=== PATIENT | female | born 1940 | race Caucasian/White ===

== ENCOUNTER → 2019-06-26 09:04 | Outpatient (CLI) | payer MEDICARE, OTHER, SELFPAY ==
--- NOTE | 2019-06-26 | DI.ECHO.S_ITS ---
[facility]---------[facility] +---------+ : : [address] : [address] [place] : : : : [id number] : : : : Phone: [phone]+ Echocardiogram Report + + :Name: TRACE CHAVEZ Study Date: 06/26/2019 Height: 65 in : :[facility] Weight: 118 lb : : Gender: Female BSA: 1.6 m2 : :: 1940 Age: 78 yrs BP: 152/84 mmHg: :Reason For Study: Aortic valve replacement - bioprosthetic : : Performed By: Dominic Auguste : :Referring: APRIL SILVA : + + Interpretation Summary 1) Normal left ventricular size, thickness, wall motion, and systolic function (EF 60-65%). 2) Normal right ventricular size and function. 3) There is a bioprosthetic aortic valve that is well-seated and opens well with mean gradient of 6mmHg. 4) No prior Echo available for comparison. Procedure: A two-dimensional transthoracic echocardiogram with color flow and Doppler was performed. The study quality was technically adequate. There is no prior echocardiogram noted for this patient. The patient was in normal sinus rhythm during the exam. Left Ventricle: The left ventricle is normal in size. There is mild concentric left ventricular hypertrophy. Left ventricular systolic function is normal. The ejection fraction is estimated to be 55-60%. Left ventricular wall motion is normal. Right Ventricle: The right ventricle is normal in size and function. Atria: The left atrial size is normal. Right atrial size is normal. The interatrial septum is intact with no evidence for an atrial septal defect. Mitral Valve: The mitral valve leaflets appear mildly thickened, but open well. There is no mitral regurgitation noted. Aortic Valve: There is a bioprosthetic aortic valve. The prosthetic aortic valve is well-seated. The aortic valve mean gradient is 6 mmHg. There is trace aortic regurgitation. Tricuspid Valve: The tricuspid valve is normal in structure and function. There is mild tricuspid regurgitation. The right ventricular systolic pressure is estimated to be at least 34 mmHg based on an estimated right atrial pressure of 8 mm Hg. Pulmonic Valve: The pulmonic valve is not well visualized. There is trace pulmonic regurgitation. Great Vessels: The aortic root is normal size. The dimensions of the ascending aorta are normal. The pulmonary artery is normal size. The IVC is of normal diameter and collapses less than 50% with a sniff. This suggests a right atrial pressure of 8 mm Hg. Pericardium/ Pleura There is no pericardial effusion. There is no pleural effusion. MMode/2D Measurements & Calculations LVIDd: 3.5 cm LVOT diam: 2.0 cm LVIDs: 2.4 cm Ao root diam: 2.3 cm FS: 30.2 % EPSS: 0.51 cm IVSd: 1.2 cm LVPWd: 1.2 cm LV stacy. diameter/BSA (cm/m^2): 2.2 LV sys. diameter/BSA (cm/m^2): 1.5 LA A4 area: 13.9 cm2 RA long axis: 4.5 cm LA length (vol): 4.1 cm RA area: 11.5 cm2 RA vol: 24.9 ml RA : 15.8 ml/m2 Doppler Measurements & Calculations Ao V2 max: 168.7 cm/sec LVOT Max Chetan: 75.0 cm/sec Ao V2 mean: 118.1 cm/sec LV V1 max P.2 mmHg Ao max P.4 mmHg LV V1 VTI: 16.5 cm Ao mean P.4 mmHg YOANA(I,D): 1.5 cm2 Ao V2 VTI: 36.8 cm YOANA(V,D): 1.5 cm2 sev ratio: 0.45 YOANA indexed to BSA (cm^2/m^2): 0.93 MV E max chetan: 52.5 cm/sec TR max chetan: 227.3 cm/sec MV A max chetan: 91.3 cm/sec TR max P.9 mmHg MV E/A: 0.58 PA V2 max: 68.0 cm/sec Med Peak E' Chetan: 6.3 cm/sec PA V2 mean: 47.6 cm/sec E/E' med: 8.3 PA mean P.0 mmHg Lat Peak E' Chetan: 5.9 cm/sec PA Accel Time: 0.12 sec E/E' lat: 9.0 E/e' average: 8.7 MV dec time: 0.30 sec SV(LVOT): 54.3 ml Reading Physician:10:48 AM
== END ==
PROVIDERS: PCP Nurse Practitioner; Visit Provider Internal Medicine Cardiovascular Disease
DX: I07.1 Rheumatic tricuspid insufficiency (principal); Z95.3 Presence of xenogenic heart valve
CPT/HCPCS: 93306

== ENCOUNTER 2019-08-07 11:30 | Outpatient (RCR) | payer MEDICARE, OTHER, SELFPAY | END 2019-08-30 08:52 | LOC: CAR 11:30 | PROVIDERS: PCP Nurse Practitioner; Visit Provider Internal Medicine Cardiovascular Disease | DX: Z95.2 Presence of prosthetic heart valve (principal) | CPT/HCPCS: 93798 ==

== ENCOUNTER → 2020-05-24 10:37 | Outpatient (CLI) | payer MEDICARE, OTHER, SELFPAY ==
[2020-05-24 11:59] LABS: Cholesterol 189 mg/dL (140-199); HDL Cholesterol 66 mg/dL (40-60); LDL Cholesterol Calculated 88 mg/dL (<100); Triglycerides 174 mg/dL (35-150)
== END ==
PROVIDERS: PCP Nurse Practitioner; Referring Provider Internal Medicine Cardiovascular Disease; Visit Provider Internal Medicine Cardiovascular Disease
DX: E78.5 Hyperlipidemia, unspecified (principal)
CPT/HCPCS: 36415; 80061

== ENCOUNTER → 2020-05-27 13:30 | Outpatient (CLI) | payer MEDICARE, OTHER, SELFPAY ==
--- NOTE | 2020-05-27 | DI.ECHO.S_ITS ---
[facility]---------[facility] +---------+ : : [address] : : : [address] [place] : : : : [id number] : : : : Phone: [phone]+ Echocardiogram Report + + :Name: TRACE CHAVEZ Study Date: 05/27/2020 Height: 64 in : :[facility] Weight: 130 lb : : Gender: Female BSA: 1.6 m2 : :: 1940 Age: 79 yrs BP: 182/100 mmHg: :Reason For Study: XENOGENIC HEART VALVE : :Ordering Physician: ABI, : :APRIL Performed By: Pat Perea : :Referring: APRIL SILVA : + + Interpretation Summary 1) Normal left ventricular size, thickness, wall motion, and systolic function (EF 65-70%). 2) Normal right ventricular size and function. 3) There is a bioprosthetic aortic valve that is well-seated and opens well with mean gradient of 2mmHg. No regurgitation present. 4) The ascending aorta is moderately enlarged at 4.8cm. This is stable from Echo 04/13/2019. 5) Compared to the echo done 06/26/2019, ascending aorta is better visualized and is enlarged on this study. Procedure: A two-dimensional transthoracic echocardiogram with color flow and Doppler was performed. The study quality was technically adequate. Comparison is made with the echocardiogram of 06/26/2019. The patient was in sinus rhythm with heart rates between 75-93 bpm during the exam. Left Ventricle: The left ventricle is normal in size and wall thickness. Proximal septal thickening is noted. The ejection fraction is estimated to be 70-75%. Right Ventricle: The right ventricle is normal in size and function. Atria: The left atrial size is normal. Right atrial size is normal. There is no Doppler evidence for an interatrial shunt. Mitral Valve: The mitral valve leaflets appear mildly thickened, but open well. There is trace mitral regurgitation. Aortic Valve: There is a prosthetic aortic valve. No aortic regurgitation is present. Tricuspid Valve: The tricuspid valve is normal in structure and function. There is mild tricuspid regurgitation. The right ventricular systolic pressure is estimated to be at least 27 mmHg based on an estimated right atrial pressure of 3 mm Hg. Pulmonic Valve: The pulmonic valve leaflets are thin and pliable; valve motion is normal. There is no pulmonic valvular regurgitation. Great Vessels: The aortic root is not well visualized. The ascending aorta is moderately enlarged. The IVC is of normal diameter and collapses greater than 50% with a sniff. This suggests a low right atrial pressure of 3 mm Hg. Pericardium/ Pleura There is no pericardial effusion. There is no pleural effusion. MMode/2D Measurements & Calculations LVIDd: 3.8 cm LVOT diam: 2.0 cm LVIDs: 2.4 cm asc Aorta Diam: 4.8 cm FS: 36.9 % EPSS: 0.37 cm IVSd: 1.0 cm LVPWd: 0.93 cm LV stacy. diameter/BSA (cm/m^2): 2.3 LV sys. diameter/BSA (cm/m^2): 1.5 LA A2 area: 12.3 cm2 RA long axis: 5.0 cm LA A4 area: 12.4 cm2 RA area: 14.7 cm2 LA length (vol): 3.9 cm RA vol: 36.2 ml LA vol: 33.2 ml RA : 22.2 ml/m2 LA vol index: 20.4 ml/m2 IVC diam: 1.3 cm RVD1 (basal): 2.2 cm TAPSE: 2.1 cm Doppler Measurements & Calculations Ao V2 max: 97.7 cm/sec LVOT Max Chetan: 90.5 cm/sec Ao V2 mean: 73.4 cm/sec LV V1 max P.3 mmHg Ao max P.8 mmHg LV V1 VTI: 19.7 cm Ao mean P.3 mmHg YOANA(I,D): 2.5 cm2 Ao V2 VTI: 23.7 cm YOANA(V,D): 2.8 cm2 sev ratio: 0.83 YOANA indexed to BSA (cm^2/m^2): 1.5 MV E max chetan: 53.3 cm/sec TR max chetan: 243.1 cm/sec MV A max chetan: 102.6 cm/sec TR max P.0 mmHg MV E/A: 0.52 PA V2 max: 79.8 cm/sec Med Peak E' Chetan: 3.5 cm/sec PA V2 mean: 55.1 cm/sec E/E' med: 15.2 PA mean P.4 mmHg Lat Peak E' Chetan: 5.0 cm/sec PA pr(Accel): 27.6 mmHg E/E' lat: 10.6 E/e' average: 12.9 MV dec time: 0.20 sec SV(LVOT): 59.9 ml Reading Physician:05:37 PM
== END ==
PROVIDERS: PCP Nurse Practitioner; Referring Provider Internal Medicine Cardiovascular Disease; Visit Provider Internal Medicine Cardiovascular Disease
DX: Z95.3 Presence of xenogenic heart valve (principal)
CPT/HCPCS: 93306

== ENCOUNTER → 2021-06-02 13:29 | Outpatient (CLI) | payer MEDICARE, OTHER, SELFPAY ==
--- NOTE | 2021-06-02 | DI.ECHO.S_ITS ---
[facility]---------+ [facility] +---------+ : : [address] : [address] : [address] : : : : [id number] : : : : Phone: [phone] +---------+ Echocardiogram Report + + :Name: TRACE CHAVEZ Study Date: 06/02/2021 Height: 64 in : :[facility] ReadingLocation: Weight: 125 lb : : Gender: Female BSA: 1.6 m2 : :: 1940 Age: 80 yrs BP: 169/92 mmHg: :Reason For Study: ASCENDING AORTA ENLARGEMENT : :Ordering Physician: ABI, : :APRIL Performed By: Pat Perea : :Referring: APRIL SILVA : + + Interpretation Summary 1) Normal left ventricular size, thickness, wall motion, and systolic function (EF 65-70%). 2) Normal right ventricular size and function. 3) There is a bioprosthetic aortic valve that is well-seated and opens well with mean gradient of 3.8mmHg. No regurgitation present. 4) The ascending aorta is moderately enlarged at 4.8cm. This is stable from Echo 05/27/2020. 5) Hypertension present during the study (BP 169/92mmHg). 6) Compared to the echo done 05/27/2020, no significant change. Procedure: A two-dimensional transthoracic echocardiogram with color flow and Doppler was performed. The study quality was technically adequate. Comparison is made with the echocardiogram of 05/27/2020. The patient was in sinus rhythm with heart rates between 65-73 bpm during the exam. Left Ventricle: Proximal septal thickening is noted. The left ventricle is normal in size. The ejection fraction is estimated to be 65-70%. Left ventricular systolic function appears normal without focal wall motion abnormalities. Right Ventricle: The right ventricle is normal in size and function. Atria: Both atria are normal in size. There is no Doppler evidence for an interatrial shunt. Mitral Valve: The mitral valve leaflets appear mildly thickened, but open well. There is trace mitral regurgitation. Aortic Valve: There is a prosthetic aortic valve. The prosthetic aortic valve appears to open well. The prosthetic aortic valve is well-seated. The gradients through the prosthetic aortic valve are within the normal range for this type of valve. The aortic valve mean gradient is 3.8 mmHg. No aortic regurgitation is present. Tricuspid Valve: The tricuspid valve is normal in structure and function. There is moderate tricuspid regurgitation. The right ventricular systolic pressure is estimated to be at least 28 mmHg based on an estimated right atrial pressure of 3 mm Hg. Pulmonic Valve: The pulmonic valve is not well visualized. There is no pulmonic valvular regurgitation. Great Vessels: The aortic root is not well visualized. The ascending aorta is moderately enlarged. The IVC is of normal diameter and collapses greater than 50% with a sniff. This suggests a low right atrial pressure of 3 mm Hg. Pericardium/ Pleura There is no pericardial effusion. There is no pleural effusion. MMode/2D Measurements & Calculations LVIDd: 3.9 cm LVOT diam: 1.9 cm LVIDs: 2.3 cm asc Aorta Diam: 4.8 cm FS: 41.7 % IVSd: 0.90 cm LVPWd: 0.72 cm LV stacy. diameter/BSA (cm/m^2): 2.4 LV sys. diameter/BSA (cm/m^2): 1.4 LA A2 area: 13.8 cm2 RA long axis: 4.1 cm LA A4 area: 11.3 cm2 RA area: 10.7 cm2 LA length (vol): 4.1 cm RA vol: 23.6 ml LA vol: 32.4 ml RA : 14.7 ml/m2 LA vol index: 20.2 ml/m2 IVC diam: 1.5 cm RVD1 (basal): 3.7 cm TAPSE: 2.0 cm Doppler Measurements & Calculations Ao V2 max: 155.3 cm/sec LVOT Max Chetan: 88.0 cm/sec Ao V2 mean: 107.5 cm/sec LV V1 max P.1 mmHg Ao max P.8 mmHg LV V1 VTI: 18.8 cm Ao mean P.2 mmHg YOANA(I,D): 1.9 cm2 Ao V2 VTI: 30.0 cm YOANA(V,D): 1.7 cm2 sev ratio: 0.63 YOANA indexed to BSA (cm^2/m^2): 1.2 MV E max chetan: 50.5 cm/sec TR max chetan: 250.8 cm/sec MV A max chetan: 86.3 cm/sec TR max P.2 mmHg MV E/A: 0.58 PA V2 max: 94.6 cm/sec Med Peak E' Chetan: 6.2 cm/sec PA V2 mean: 67.8 cm/sec E/E' med: 8.2 PA mean P.0 mmHg Lat Peak E' Chetan: 6.4 cm/sec PA pr(Accel): 43.0 mmHg E/E' lat: 7.8 E/e' average: 8.0 MV dec time: 0.34 sec SV(LVOT): 55.6 ml Reading Physician:03:23 PM
== END ==
PROVIDERS: PCP Physician Assistant Medical; Referring Provider Internal Medicine Cardiovascular Disease; Visit Provider Internal Medicine Cardiovascular Disease
DX: I07.1 Rheumatic tricuspid insufficiency (principal); I77.89 Other specified disorders of arteries and arterioles
CPT/HCPCS: 93306

== ENCOUNTER → 2021-11-12 09:38 | Outpatient (CLI) | payer MEDICARE, OTHER, SELFPAY ==
[2021-11-12 11:09] LABS: Alanine Aminotransferase 17 IU/L (<35); Albumin 3.9 g/dL (3.5-5.0); Albumin Globulin Ratio 1.4 (1.0-2.8); Alkaline Phosphatase 64 U/L (38-126); Aspartate Aminotransferase 34 IU/L (14-36); BUN Creatinine Ratio 31.4 (6-22); Bilirubin Total 0.7 mg/dL (0.2-1.3); Blood Urea Nitrogen 22 mg/dL (7-17); Calcium 8.9 mg/dL (8.4-10.2); Carbon Dioxide 27 mmol/L (22-32); Chloride 106 mmol/L (98-107); Cholesterol 179 mg/dL (140-199); Estimated Glomerular Filt Rate > 60 mL/min (>60); Globulin 2.8 g/dL (1.7-4.1); Glucose 99 mg/dL (80-110); HDL Cholesterol 64 mg/dL (40-60); HEMOLYSIS < 15 (0-50); LDL Cholesterol Calculated 84 mg/dL (<100); Potassium 3.4 mmol/L (3.4-5.1); Sodium 139 mmol/L (137-145); Total Protein 6.7 g/dL (6.3-8.2); Triglycerides 156 mg/dL (35-150)
== END ==
PROVIDERS: PCP Internal Medicine; Referring Provider Internal Medicine; Visit Provider Internal Medicine
DX: E78.2 Mixed hyperlipidemia (principal); I10 Essential (primary) hypertension
CPT/HCPCS: 36415; 80053; 80061

== ENCOUNTER → 2022-03-31 10:12 | Outpatient (CLI) | payer MEDICARE, OTHER, SELFPAY ==
[2022-03-31 12:41] LABS: Alanine Aminotransferase 16 IU/L (<35); Albumin 3.7 g/dL (3.5-5.0); Albumin Globulin Ratio 1.2 (1.0-2.8); Alkaline Phosphatase 70 U/L (38-126); Aspartate Aminotransferase 33 IU/L (14-36); BUN Creatinine Ratio 26.1 (6-22); Bilirubin Total 0.6 mg/dL (0.2-1.3); Blood Urea Nitrogen 18 mg/dL (7-17); Calcium 9.3 mg/dL (8.4-10.2); Carbon Dioxide 31 mmol/L (22-32); Chloride 103 mmol/L (98-107); Cholesterol 172 mg/dL (140-199); Estimated Glomerular Filt Rate > 60 mL/min (>60); Globulin 3.1 g/dL (1.7-4.1); Glucose 73 mg/dL (80-110); HDL Cholesterol 54 mg/dL (40-60); HEMOLYSIS < 15 (0-50); LDL Cholesterol Calculated 70 mg/dL (<100); Potassium 4.3 mmol/L (3.4-5.1); Sodium 140 mmol/L (137-145); Total Protein 6.8 g/dL (6.3-8.2); Triglycerides 241 mg/dL (35-150)
== END ==
PROVIDERS: PCP Internal Medicine; Referring Provider Internal Medicine; Visit Provider Internal Medicine
DX: E78.2 Mixed hyperlipidemia (principal); I10 Essential (primary) hypertension
CPT/HCPCS: 36415; 80053; 80061

== ENCOUNTER → 2022-07-09 15:00 | Outpatient (CLI) | payer MEDICARE, OTHER, SELFPAY ==
--- NOTE | 2022-07-09 15:03 | DI.ECHO.S_ITS ---
[facility]---------+ [facility] +---------+ : : [address] : [address] : [address] : : : : [id number] : : : : Phone: [phone] +---------+ Echocardiogram Report + + :Name: TRACE CHAVEZ Study Date: 07/09/2022 Height: 64 in : :[facility] ReadingLocation: Weight: 120 lb : : Gender: Female BSA: 1.6 m2 : :: 1940 Age: 81 yrs BP: 154/88 mmHg: :Reason For Study: Ascending Aorta enlargement : :Ordering Physician: ABI, : :APRIL Performed By: Pat Dean : :Referring: APRIL SILVA : + + Interpretation Summary 1) Normal left ventricular size, thickness, wall motion, and systolic function (EF 65-70%). 2) Normal right ventricular size and function. 3) There is a bioprosthetic aortic valve that is well-seated and opens well with mean gradient of 5mmHg. No regurgitation present. 4) The ascending aorta is moderately enlarged at 4.8cm. 5) Hypertension present during the study (BP 154/88mmHg). 6) Compared to the echo done 06/02/2021, no significant change. Procedure: A two-dimensional transthoracic echocardiogram with color flow and Doppler was performed. The patient was in sinus rhythm with heart rates between 65-73 bpm during the exam. Left Ventricle: The left ventricle is normal in size and wall thickness. The ejection fraction is estimated to be 65-70%. Left ventricular systolic function appears normal without focal wall motion abnormalities. Diastolic parameters suggest a relaxation abnormality of the left ventricle, consistent with probable normal filling pressures. Right Ventricle: The right ventricle is normal in size and function. Atria: The left atrial size is normal. The right atrium is mildly dilated. There is no Doppler evidence for an interatrial shunt. Mitral Valve: The mitral valve is normal in structure and function. There is no mitral regurgitation noted. Aortic Valve: There is a bioprosthetic aortic valve. The aortic valve mean gradient is 5 mmHg. There is no aortic regurgitation. Tricuspid Valve: The tricuspid valve is normal in structure and function. There is mild tricuspid regurgitation. The right ventricular systolic pressure is estimated to be at least 31 mmHg based on an estimated right atrial pressure of 3 mm Hg. Pulmonic Valve: The pulmonic valve leaflets are thin and pliable; valve motion is normal. There is no pulmonic valvular regurgitation. Great Vessels: This is unchanged compared to the previous study. The ascending aorta is moderate-severely enlarged. The IVC is of normal diameter and collapses greater than 50% with a sniff. This suggests a low right atrial pressure of 3 mm Hg. Pericardium/ Pleura There is no pericardial effusion. There is no pleural effusion. MMode/2D Measurements & Calculations LVIDd: 2.9 cm LVOT diam: 2.0 cm LVIDs: 2.0 cm asc Aorta Diam: 4.8 cm FS: 31.0 % Ao Arch Diam (Prox Trans): 2.4 cm EPSS: 0.10 cm IVSd: 1.1 cm LVPWd: 0.80 cm LV stacy. diameter/BSA (cm/m^2): 1.8 LV sys. diameter/BSA (cm/m^2): 1.3 LA A2 area: 13.7 cm2 RA long axis: 4.9 cm LA A4 area: 13.7 cm2 RA area: 15.2 cm2 LA length (vol): 4.5 cm RA vol: 40.1 ml LA vol: 35.6 ml RA : 25.5 ml/m2 LA vol index: 22.6 ml/m2 LVLs ap4: 4.9 cm LVLd ap2: 7.3 cm LVLs ap2: 4.6 cm TAPSE_phl: 2.4 cm Doppler Measurements & Calculations Ao V2 max: 148.0 cm/sec LVOT Max Chetan: 106.0 cm/sec Ao V2 mean: 106.0 cm/sec LV V1 max P.5 mmHg Ao max P.0 mmHg LV V1 VTI: 21.9 cm Ao mean P.0 mmHg YOANA(I,D): 2.4 cm2 Ao V2 VTI: 28.4 cm YOANA(V,D): 2.3 cm2 sev ratio: 0.77 YOANA indexed to BSA (cm^2/m^2): 1.5 MV E max chetan: 44.9 cm/sec TR max chetan: 264.0 cm/sec MV A max chetan: 101.0 cm/sec TR max P.9 mmHg MV E/A: 0.44 PA V2 max: 75.9 cm/sec Med Peak E' Chetan: 4.7 cm/sec PA V2 mean: 50.8 cm/sec E/E' med: 9.5 PA mean P.0 mmHg Lat Peak E' Chetan: 5.8 cm/sec E/E' lat: 7.7 E/e' average: 8.6 MV dec time: 0.26 sec MVA(VTI): 3.0 cm2 MV V2 mean: 50.3 cm/sec SV(LVOT): 68.8 ml MV mean P.0 mmHg MV V2 VTI: 23.3 cm AV VR_phl: 0.72 YOANA(VTI)/BSA_phl: 1.5 Reading Physician:12:02 PM
== END ==
PROVIDERS: PCP Internal Medicine; Referring Provider Internal Medicine Cardiovascular Disease; Visit Provider Internal Medicine Cardiovascular Disease
DX: I77.89 Other specified disorders of arteries and arterioles (principal); Z95.2 Presence of prosthetic heart valve; I07.1 Rheumatic tricuspid insufficiency
CPT/HCPCS: 93306

== ENCOUNTER → 2022-09-28 10:11 | Outpatient (CLI) | payer MEDICARE, OTHER, SELFPAY ==
[2022-09-28 11:39] LABS: Alanine Aminotransferase 21 IU/L (<35); Albumin 3.7 g/dL (3.5-5.0); Albumin Globulin Ratio 1.2 (1.0-2.8); Alkaline Phosphatase 70 U/L (38-126); Aspartate Aminotransferase 35 IU/L (14-36); BUN Creatinine Ratio 26.8 (6-22); Bilirubin Total 0.7 mg/dL (0.2-1.3); Blood Urea Nitrogen 19 mg/dL (7-17); Calcium 9.1 mg/dL (8.4-10.2); Carbon Dioxide 29 mmol/L (22-32); Chloride 104 mmol/L (98-107); Cholesterol 173 mg/dL (140-199); Estimated Glomerular Filt Rate > 60 mL/min (>60); Glucose 85 mg/dL (80-110); HDL Cholesterol 62 mg/dL (40-60); HEMOLYSIS < 15 (0-50); LDL Cholesterol Calculated 77 mg/dL (<100); Sodium 139 mmol/L (137-145); Total Protein 6.7 g/dL (6.3-8.2); Triglycerides 170 mg/dL (35-150)
== END ==
PROVIDERS: PCP Internal Medicine; Referring Provider Internal Medicine; Visit Provider Internal Medicine
DX: E78.2 Mixed hyperlipidemia (principal); I10 Essential (primary) hypertension
CPT/HCPCS: 36415; 80053; 80061

== ENCOUNTER → 2023-04-02 10:26 | Outpatient (CLI) | payer MEDICARE, OTHER, SELFPAY ==
[2023-04-02 12:17] LABS: Alanine Aminotransferase 18 IU/L (<35); Albumin 3.8 g/dL (3.5-5.0); Albumin Globulin Ratio 1.5 (1.0-2.8); Alkaline Phosphatase 58 U/L (38-126); Aspartate Aminotransferase 31 IU/L (14-36); BUN Creatinine Ratio 19.7 (6-22); Bilirubin Total 0.8 mg/dL (0.2-1.3); Blood Urea Nitrogen 14 mg/dL (7-17); Carbon Dioxide 28 mmol/L (22-32); Chloride 103 mmol/L (98-107); Cholesterol 177 mg/dL (140-199); Estimated Glomerular Filt Rate > 60 mL/min (>60); Globulin 2.5 g/dL (1.7-4.1); Glucose 110 mg/dL (80-110); HDL Cholesterol 65 mg/dL (40-60); HEMOLYSIS < 15 (0-50); LDL Cholesterol Calculated 84 mg/dL (<100); Sodium 139 mmol/L (137-145); Total Protein 6.3 g/dL (6.3-8.2); Triglycerides 142 mg/dL (35-150)
== END ==
PROVIDERS: PCP Internal Medicine; Referring Provider Internal Medicine; Visit Provider Internal Medicine
DX: E78.2 Mixed hyperlipidemia (principal); I10 Essential (primary) hypertension
CPT/HCPCS: 36415; 80053; 80061

== ENCOUNTER → 2023-10-20 09:48 | Outpatient (CLI) | payer MEDICARE, OTHER, SELFPAY ==
[2023-10-20 11:01] LABS: Alanine Aminotransferase 14 IU/L (<35); Albumin 4.1 g/dL (3.5-5.0); Albumin Globulin Ratio 1.6 (1.0-2.8); Alkaline Phosphatase 72 U/L (38-126); Aspartate Aminotransferase 34 IU/L (14-36); BUN Creatinine Ratio 28.6 (6-22); Bilirubin Total 0.8 mg/dL (0.2-1.3); Blood Urea Nitrogen 18 mg/dL (7-17); Calcium 9.6 mg/dL (8.4-10.2); Carbon Dioxide 29 mmol/L (22-32); Chloride 108 mmol/L (98-107); Cholesterol 159 mg/dL (140-199); Estimated Glomerular Filt Rate > 60 mL/min (>60); Globulin 2.6 g/dL (1.7-4.1); Glucose 92 mg/dL (80-110); HDL Cholesterol 70 mg/dL (40-60); HEMOLYSIS < 15 (0-50); LDL Cholesterol Calculated 58 mg/dL (<100); Sodium 140 mmol/L (137-145); Total Protein 6.7 g/dL (6.3-8.2); Triglycerides 155 mg/dL (35-150)
== END ==
PROVIDERS: PCP Internal Medicine; Referring Provider Internal Medicine; Visit Provider Internal Medicine
DX: I10 Essential (primary) hypertension (principal); E78.2 Mixed hyperlipidemia; K21.9 Gastro-esophageal reflux disease without esophagitis
CPT/HCPCS: 36415; 80053; 80061

== ENCOUNTER → 2024-04-18 09:56 | Outpatient (CLI) | payer MEDICARE, OTHER, SELFPAY ==
[2024-04-18 10:32] LABS: Add Manual Diff / Slide Review NO; Basophils Absolute Auto 0 /uL (0-100); Eosinophils Absolute Auto 100 /uL (0-450); Eosinophils Percent Auto 2.8 % (2-4); Hematocrit 33.7 % (36-46); Hemoglobin 11.3 g/dL (12.0-16.0); Lymphocytes Absolute Auto 1800 /uL (1100-4500); Lymphocytes Percent Auto 36.7 % (25-40); Mean Corpuscular HGB Conc 33.7 % (30-36); Mean Corpuscular Hemoglobin 29.2 PG (26-34); Mean Corpuscular Volume 86.6 fL (80-100); Monocytes Absolute Auto 500 /uL (0-900); Monocytes Percent Auto 11.2 % (3-14); Neutrophils Absolute Auto 2400 /uL (1500-7000); Neutrophils Percent Auto 48.3 % (50-75); Platelet Count 220 X10^3/uL (150-400); Red Blood Cell Count 3.88 X10^6/uL (4.0-5.2); Red Cell Distribution Width 12.8 % (11.6-14.8); White Blood Cell Count 4.9 X10^3/uL (4.5-11.0)
[2024-04-18 10:54] LABS: Alanine Aminotransferase 13 IU/L (<35); Albumin 3.5 g/dL (3.5-5.0); Albumin Globulin Ratio 1.3 (1.0-2.8); Alkaline Phosphatase 72 U/L (38-126); Aspartate Aminotransferase 32 IU/L (14-36); BUN Creatinine Ratio 23.3 (6-22); Bilirubin Total 0.6 mg/dL (0.2-1.3); Blood Urea Nitrogen 17 mg/dL (7-17); Calcium 9.2 mg/dL (8.4-10.2); Carbon Dioxide 28 mmol/L (22-32); Chloride 104 mmol/L (98-107); Cholesterol 151 mg/dL (140-199); Estimated Glomerular Filt Rate > 60 mL/min (>60); Globulin 2.8 g/dL (1.7-4.1); Glucose 106 mg/dL (80-110); HDL Cholesterol 61 mg/dL (40-60); HEMOLYSIS < 15 (0-50); LDL Cholesterol Calculated 56 mg/dL (<100); Potassium 3.9 mmol/L (3.4-5.1); Sodium 136 mmol/L (137-145); Total Protein 6.3 g/dL (6.3-8.2); Triglycerides 168 mg/dL (35-150)
== END ==
PROVIDERS: PCP Internal Medicine; Referring Provider Internal Medicine; Visit Provider Internal Medicine
DX: E78.2 Mixed hyperlipidemia (principal); I10 Essential (primary) hypertension; D64.9 Anemia, unspecified
CPT/HCPCS: 36415; 80053; 80061; 85025

== ENCOUNTER → 2024-10-19 10:52 | Outpatient (CLI) | payer MEDICARE, OTHER, SELFPAY ==
[2024-10-19 11:30] LABS: Add Manual Diff / Slide Review NO; Basophils Absolute Auto 0 /uL (0-100); Basophils Percent Auto 0.7 % (0-2); Eosinophils Absolute Auto 100 /uL (0-450); Eosinophils Percent Auto 1.3 % (2-4); Hemoglobin 11.6 g/dL (12.0-16.0); Lymphocytes Absolute Auto 1500 /uL (1100-4500); Lymphocytes Percent Auto 25.7 % (25-40); Mean Corpuscular HGB Conc 33.3 % (30-36); Monocytes Absolute Auto 700 /uL (0-900); Monocytes Percent Auto 11.4 % (3-14); Neutrophils Absolute Auto 3500 /uL (1500-7000); Neutrophils Percent Auto 60.9 % (50-75); Platelet Count 228 X10^3/uL (150-400); Red Blood Cell Count 4.02 X10^6/uL (4.0-5.2); Red Cell Distribution Width 12.9 % (11.6-14.8); White Blood Cell Count 5.7 X10^3/uL (4.5-11.0)
[2024-10-19 12:12] LABS: HEMOLYSIS < 15 (0-50); Iron 63 ug/dL (37-170)
[2024-10-19 12:16] LABS: Alanine Aminotransferase 19 IU/L (<35); Albumin Globulin Ratio 1.6 (1.0-2.8); Alkaline Phosphatase 66 U/L (38-126); Aspartate Aminotransferase 35 IU/L (14-36); BUN Creatinine Ratio 22.4 (6-22); Bilirubin Total 0.7 mg/dL (0.2-1.3); Blood Urea Nitrogen 17 mg/dL (7-17); Calcium 9.6 mg/dL (8.4-10.2); Carbon Dioxide 28 mmol/L (22-32); Chloride 106 mmol/L (98-107); Cholesterol 222 mg/dL (140-199); Estimated Glomerular Filt Rate > 60 mL/min (>60); Globulin 2.5 g/dL (1.7-4.1); Glucose 118 mg/dL (80-110); HDL Cholesterol 65 mg/dL (40-60); HEMOLYSIS < 15 (0-50); LDL Cholesterol Calculated 107 mg/dL (<100); Potassium 4.4 mmol/L (3.4-5.1); Sodium 139 mmol/L (137-145); Total Protein 6.5 g/dL (6.3-8.2); Triglycerides 249 mg/dL (35-150)
[2024-10-19 12:24] LABS: Percent Iron Saturation 22 % (15-50); Total Iron Binding Capacity 281 ug/dL (265-497); Transferrin 230 mg/dL (206-381)
[2024-10-19 13:03] LABS: Vitamin B12 393 pg/mL (239-931)
== END ==
PROVIDERS: PCP Internal Medicine; Referring Provider Internal Medicine; Visit Provider Internal Medicine
DX: I10 Essential (primary) hypertension (principal); E78.2 Mixed hyperlipidemia; G62.9 Polyneuropathy, unspecified; D64.9 Anemia, unspecified
CPT/HCPCS: 36415; 80053; 80061; 82607; 83540; 83550; 85025

== ENCOUNTER → 2025-01-30 16:46 | Outpatient (CLI) | payer MEDICARE, OTHER, SELFPAY ==
[2025-01-30 17:09] LABS: Add Manual Diff / Slide Review NO; Hematocrit 33.0 % (36-46); Hemoglobin 11.2 g/dL (12.0-16.0); Lymphocytes Absolute Auto 1500 /uL (1100-4500); Mean Corpuscular HGB Conc 34.0 % (30-36); Mean Corpuscular Hemoglobin 29.2 PG (26-34); Mean Corpuscular Volume 85.9 fL (80-100); Platelet Count 212 X10^3/uL (150-400)
[2025-01-30 17:23] LABS: INR 1.0 (0.9-1.3); Prothrombin Time 11.3 SECONDS (9.4-12.5)
[2025-01-30 17:25] LABS: PTT Partial Thromboplastin Tim 26 SECONDS (25.1-36.5)
[2025-01-30 17:29] LABS: Alanine Aminotransferase 16 IU/L (<35); Albumin 4.1 g/dL (3.5-5.0); Albumin Globulin Ratio 1.5 (1.0-2.8); Alkaline Phosphatase 73 U/L (38-126); Blood Urea Nitrogen 16 mg/dL (7-17); Calcium 9.5 mg/dL (8.4-10.2); Carbon Dioxide 26 mmol/L (22-32); Chloride 106 mmol/L (98-107); Estimated Glomerular Filt Rate > 60 mL/min (>60); Globulin 2.8 g/dL (1.7-4.1); Glucose 106 mg/dL (70-99); HEMOLYSIS < 15 (0-50); Potassium 4.1 mmol/L (3.4-5.1); Sodium 138 mmol/L (137-145); Total Protein 6.9 g/dL (6.3-8.2)
[2025-01-30 17:57] LABS: TSH w/ Reflex to FT4 1.41 uIU/mL (0.47-4.68)
== END ==
PROVIDERS: PCP Internal Medicine; Referring Provider Internal Medicine; Visit Provider Internal Medicine
DX: K92.2 Gastrointestinal hemorrhage, unspecified (principal); K52.9 Noninfective gastroenteritis and colitis, unspecified
CPT/HCPCS: 36415; 80053; 84443; 85025; 85610; 85651; 85730; 86140

== ENCOUNTER → 2025-04-24 11:07 | Outpatient (CLI) | payer MEDICARE, OTHER, SELFPAY ==
[2025-04-24 11:39] LABS: Add Manual Diff / Slide Review NO; Hematocrit 34.1 % (36-46); Hemoglobin 11.6 g/dL (12.0-16.0); Lymphocytes Absolute Auto 1600 /uL (1100-4500); Mean Corpuscular HGB Conc 33.9 % (30-36); Mean Corpuscular Hemoglobin 28.7 PG (26-34); Mean Corpuscular Volume 84.6 fL (80-100); Platelet Count 254 X10^3/uL (150-400)
[2025-04-24 12:12] LABS: Alanine Aminotransferase 22 IU/L (<35); Albumin 3.9 g/dL (3.5-5.0); Albumin Globulin Ratio 1.3 (1.0-2.8); Alkaline Phosphatase 91 U/L (38-126); Blood Urea Nitrogen 12 mg/dL (7-17); Calcium 9.6 mg/dL (8.4-10.2); Carbon Dioxide 29 mmol/L (22-32); Chloride 104 mmol/L (98-107); Cholesterol 164 mg/dL (140-199); Estimated Glomerular Filt Rate > 60 mL/min (>60); Globulin 3.0 g/dL (1.7-4.1); Glucose 90 mg/dL (70-99); HDL Cholesterol 68 mg/dL (40-60); HEMOLYSIS < 15 (0-50); Potassium 4.0 mmol/L (3.4-5.1); Sodium 137 mmol/L (137-145); Total Protein 6.9 g/dL (6.3-8.2); Triglycerides 175 mg/dL (35-150)
== END ==
PROVIDERS: PCP Internal Medicine; Referring Provider Internal Medicine; Visit Provider Internal Medicine
DX: I10 Essential (primary) hypertension (principal); K62.5 Hemorrhage of anus and rectum; E78.2 Mixed hyperlipidemia
CPT/HCPCS: 36415; 80053; 80061; 85025